=== PATIENT | female | born 1970 | race Caucasian/White ===

== ENCOUNTER 2022-04-15 01:45 | Emergency (ER) | payer BC, SELFPAY ==
[2022-04-15] VITALS (14 sets, daily range): BP systolic 87–121; BP diastolic 45–70; PULSE 80–105; RESP 11–19; TEMP 36.7–37.1; O2SAT 93–100; BMI 32.0
--- NOTE | 2022-04-15 01:46 | XR_ITS ---
PROCEDURE INFORMATION: Exam: XR Chest Exam date and time: 04/15/2022 2:04 AM Age: 51 years old Clinical indication: Other: Hematemesis; Patient HX: Previous smoker; Additional info: Vomiting TECHNIQUE: Imaging protocol: Radiologic exam of the chest. Views: 1 view. COMPARISON: No relevant prior studies available. FINDINGS: Lungs: Paucity of markings in the mid to upper lung zones raising the suspicion for emphysematous changes. Small nodular density in the right upper lung zone projecting between the posterior 4th and 5th ribs. No consolidation. Pleural spaces: Unremarkable. No pleural effusion. No pneumothorax. Heart/Mediastinum: Unremarkable. No cardiomegaly. Vasculature: Unremarkable. Bones/joints: Unremarkable. IMPRESSION: 1. Findings raise the suspicion for emphysematous changes. 2. 6 mm nodular density within the right upper lung zone at the posterior 4th rib interspace. Further evaluation with nonemergent CT of the chest is recommended.
--- NOTE | 2022-04-15 01:46 | HMH.EDGENADL ---
Discharge Plan Disposition Patient Disposition: Xfer Other Condition: Serious Prescriptions Prescriptions: No Action sucralfate 1 gram Tablet 1 g PO BID Referrals Follow up/Referrals: Analy Sanchez MD [Primary Care Provider] - See instructions Clinical Impressions Clinical Impression: Hematemesis, Anemia Stand Alone Forms Stand Alone Forms: Transfer Record - ED Instructions Patient Instructions: DI for Gastrointestinal Bleeding Discharge ED Provider: Myranda Levin General Adult HPI General Chief complaint: GI Bleed Stated complaint: gi bleed Time Seen by Provider: 04/15/22 01:50 Mode of Arrival: EMS Source of Information: Patient History of Present Illness HPI narrative: 51-year-old female presenting to the emergency department with chief complaint of vomiting blood. She felt generally unwell for the last 2 days. This evening, developed extreme nausea. She had an episode of emesis just prior to arrival that was large chunks of dark red blood. No particular abdominal pain. No chest pain. She has had symptoms like this before, about 2 months ago she was admitted to [facility] in [place]. Had scopes. Was told she had lesions, but not ulcers. She does not take blood thinning medications. Denies changes to sleep, diet, caffeine, alcohol, tobacco use. She is taking sucralfate as needed. Stool was somewhat dark yesterday. No bright red blood. No pallor, weakness. On further questioning, patient says she previously drank alcohol heavily, 1/5 vodka everyday prior to her hospitalization in February. She has cirrhosis. Denies varices. She has not drank alcohol in 2 months. Stop smoking cigarettes. Related Data Home Medications Medication Instructions Recorded Confirmed sucralfate 1 gram tablet 1 g PO BID gi bleed 04/15/22 04/15/22 Allergies Allergy/AdvReac Type Severity Reaction Status Date / Time No Known Allergies Allergy Verified 04/15/22 01:50 [facility] Medical History (Updated 04/15/22 @ 02:29 by Myranda Levin DO) Alcoholism Cirrhosis GI bleed Social History (Updated 04/15/22 @ 02:06 by Trish Valencia RN) Smoking Status: Former smoker how long ago did patient quit smokin month alcohol intake: former year quit: 2021 current occupational status: retired Travel in the last 8 weeks: None adopted: No caregiver/support person: No foster care: No household members: spouse housing: house lives independently: Yes marital status: ROS Obtained: Yes All systems reviewed & no additional complaints except as documented Constitutional Constitutional: Denies chills, Denies fever(s) and Denies headache(s) ENT Ears, Nose, Mouth, and Throat: Denies dizziness, Denies headache(s) and Denies sore throat Cardiovascular Cardiovascular: Denies chest pain and Denies dyspnea Respiratory Respiratory: Denies cough and Denies dyspnea Gastrointestinal Gastrointestingal: Reports hematemesis, melena, reflux and vomiting; Denies abdominal pain or coffee ground emesis Musculoskeletal Musculoskeletal: Denies arthralgias and Denies back pain Integumentary/Breasts Skin/Breast: Denies dry skin and Denies rash Neurologic Neurologic: Denies dizziness and Denies headache(s) Hematologic/Lymphatic Henatologic/Lymphatic: Denies easy bleeding and Denies easy bruising Physical Exam General General appearance: alert and in no apparent distress Head Head exam: atraumatic Eye Eye exam: Present normal appearance; Absent conjunctival redness ENT ENT exam: Present normal exam, mucous membranes moist and other (Poor dentition) Respiratory Respiratory exam: Present normal lung sounds bilaterally; Absent respiratory distress or wheezes Cardiovascular Cardiovascular exam: Present normal rhythm and tachycardia Abdominal Exam Abdominal exam: Present soft and tenderness (epigastric); Absent distention Extremities Exam Extremities exam: Present normal inspection and f
--- NOTE | 2022-04-15 01:49 | PC.NURSE ---
contacted [facility] for pt records of scop on 02/28/22
[2022-04-15 02:12] LABS: Basophils # 0.1 K/mm3 (0-0.2); Basophils % 0.6 % (0.1-2.0); Coronavirus 19, PCR Not Detected (NotDetected); Eosinophils # 0.1 K/mm3 (0.0-0.4); Eosinophils % 0.4 % (0.1-12.0); Hematocrit 23.5 % (37.0-47.0); Hemoglobin 7.8 g/dL (12.2-16.2); Influenza A, PCR Not Detected (NotDetected); Influenza B, PCR Not Detected (NotDetected); Lymphocytes # 4.2 K/mm3 (0.7-4.5); Lymphocytes % 28.4 % (10-50); Mean Corpuscular HGB Conc 33.3 g/dL (31.8-35.4); Mean Corpuscular Hemoglobin 32.9 pg (27.0-31.2); Mean Platelet Volume 8.5 fl (7.4-10.4); Monocytes # 0.5 K/mm3 (0.1-1.0); Monocytes % 3.7 % (1.7-9.3); Neutrophils # 9.8 K/mm3 (1.8-7.8); Neutrophils % 66.9 % (37.0-80.0); Platelet Count 212 K/mm3 (142-424); Red Blood Count 2.37 M/mm3 (4.20-5.40); Red Cell Distribution Width 13.5 % (11.5-17.5); White Blood Count 14.7 K/mm3 (4.8-10.8)
--- NOTE | 2022-04-15 02:12 | ECG_ITS ---
APPROVED REPORT Exam: Resting ECG HR:93 bpm ECG Measurements Heart Rate 93 AXES SC 153 P 61 QRSd 85 QRS 31 QT 374 T 3 QTc 425 Conclusion SINUS RHYTHM NONSPECIFIC T-WAVE ABNORMALITY BORDERLINE ECG UNCONFIRMED REPORT Electronically signed by : Renato Curiel MD 04/17/2022 21:13:17
[2022-04-15 02:18] LABS: Chloride 108 mmol/L (98-107); Sodium 137 mmol/L (136-145)
[2022-04-15 02:20] LABS: Alanine Aminotransferase 36 U/L (12-78); Aspartate Amino Transferase 52 U/L (14-36); Blood Urea Nitrogen 29 mg/dl (7-17); Creatinine Clearance Estimated 202 mL/min (50-200); Estimated Glomerular Filt Rate 129 ml/min (>60); GFR (African American) 156 ML/MIN (>60)
[2022-04-15 02:20] LABS: Lactic Acid 1.8 mmol/L (0.7-2.1)
--- NOTE | 2022-04-15 02:20 | PC.NURSE ---
Patient given clean gown and partial bed bath with a brief. Patient had an episode of incontinence while vomiting upon admission.
[2022-04-15 02:21] LABS: Albumin Level 2.9 g/dl (3.5-5.0); Alkaline Phosphatase 65 U/L (38-126); Bilirubin,Total 0.5 mg/dl (0.2-1.3); Calcium 8.7 mg/dl (8.4-10.2); Carbon Dioxide 21 mmol/L (22.0-30.0); Globulin 2.8 g/dL (1.3-3.2); Glucose 152 mg/dl (74-100); Lipase 80 U/L (23-300); Total Protein,Serum 5.7 g/dl (6.3-8.2)
[2022-04-15 02:22] LABS: INR 1.26 (0.9-1.1); Prothrombin Time 13.4 seconds (10.1-12.5)
[2022-04-15 02:58] LABS: Ethyl Alcohol < 10 mg/dl (0-10)
--- NOTE | 2022-04-15 03:00 | PC.NURSE ---
speaking with [facility], . Patient is placed on a waiting list pending room availability.
--- NOTE | 2022-04-15 03:10 | PC.NURSE ---
Patient was accepted to [facility] to pending wait list and room availability.
--- NOTE | 2022-04-15 03:37 | PC.NURSE ---
Spoke with Anjel in lab regarding critical hematocrit of 6.9 and hemoglobin of 22.0. notified. Ordered to transfuse one unit of prbc.
[2022-04-15 03:38] LABS: Hemoglobin 6.9 g/dL (12.2-16.2)
--- NOTE | 2022-04-15 03:45 | PC.NURSE ---
[facility] called with room assignment and to get report. Patient report given to Tamara. Advised Tamara that patient will be given 1 unit of blood prior to transport per MD request.
--- NOTE | 2022-04-15 06:27 | PC.NURSE ---
Patients blood transfusion was started at 50ml an hour at approx 0456. At 0511 the rate of infusion was increased to 200ml/hr as patient was tolerating the transfusion well. Transfusion was completed at 0625. Patient had no adverse effects or reactions to the transfusion and remained hemodynamically stable throughout the transfusion.
== END 2022-04-15 06:45 | disposition other institution (70) ==
PROVIDERS: Emergency Provider Emergency Medicine; PCP Family Medicine
DX: K92.0 Hematemesis (principal); D64.9 Anemia, unspecified; Z87.19 Personal history of other diseases of the digestive system; Z79.899 Other long term (current) drug therapy; K70.30 Alcoholic cirrhosis of liver without ascites; Z87.891 Personal history of nicotine dependence
CPT/HCPCS: 36430; 71045; 80053; 83605; 83690; 85014; 85018; 85025; 85610; 86850; 93005; 96365; 96366; 96368; 96375; 99285; C9803; J0696; J2354; J2405; P9016; U0003; U0005